=== PATIENT | female | born 1950 | race African-American/Black ===

== ENCOUNTER → 2016-09-22 | Outpatient (CLI) | payer OTHER ==
[2015-07-10 15:18] VITALS: BP 128/64
[~2016-09-22] MED LIST: ASPI-482 PO; CRESTOR10 MG PO; CRESTOR20 MG PO; LOSA1TAB16 PO; METO25TA4 PO; MULT-658 PO; Metoprolol Tartrate PO; NITR0.4T SL; PANT40TA3 PO; REGADENOSON 0.4 MG/5 ML DISP.SYRIN. IV ONE; TICA90TA PO; VIT1CAPS9 PO; vitamin d
--- NOTE | 2016-09-22 13:09 | RAD ---
APPROVED REPORT Test Type: Pharmacological Stress Nurse/Tech: Sofiya Sagastume RN Test Indications: CAD, Chest Pain Cardiac History: see ehr Medications: see ehr Medical History: see ehr Resting ECG: SR Resting Heart Rate: 63 bpm Resting Blood Pressure: 127/77mmHg Pretest Chest Pain: None Nurse/Tech Notes Lungs CTA, S1, S2 Consent: The procedure was explained to the patient in lay terms. Informed consent was witnessed. Albert eout was entered into [employer]. History and Stress Test performed by Javier AcostaNLay Pharm. Details Pharmacologic stress testing was performed using 0.4mg per 5ml of regadenoson given intravenously ove r 7-10 seconds. Stress Symptoms No chest pain or symptoms. POST EXERCISE Reason for Termination: Infusion complete Max HR: 102 bpm Max Blood Pressure: 140/69mmHg Blood Pressure response to exercise: Normal blood pressure response during stress. Chest Pain: No. Arrhythmia: No. ST Change: No. INTERPRETATION Stress EKG Conclusion: Baseline EKG showed sinus rhythm with inferolateral T-wave inversions. Nondiag nostic changes at peak stress. No arrhythmias. Imaging Protocol IMAGE PROTOCOL: Rest Tc-99m/stress Tc-99m 1 day Rest: Stress: Viability: Radiopharm.Tc99m DgpgotnuvLk17s Sestamibi Btin28bWd 31mCi Duration 15min. 10min. Img Date 09/22/2016 09/22/2016 Inj-Img [id number]. 60min. Rest Admin Site:IV - Left AntecubitalAdministrator:KENAN Romeo, ARRT (R)(N) Stress Admin Site: IV - Left AntecubitalAdministrator: Yesy Mariee, RT (R)(N) STRESS DATA End Diast. Vol.54.0mlAv. Heart Rate73.0bpm End Syst. Vol.6.0mlCO Index BSA0.0L/min Myocardial Mass94.0gEject. Prtnugoj65.0% Stress Rates Pk. Fill Rate3.51EDV/secLVtime Pk. Fill 72.39msec Pk. Empty Rate3.50ESV/secLVtime Pk. Vulyk597.93msec 1/3 Pk. Fill2.51EDV/sec Stress Scores Regional WT1.00Summed WT16.00 Regional WM0.00Summed WM0.00 Study quality was good. Left Ventricular size was Normal at Rest and Stress. Lung uptake was Normal. Left Ventricular ejection fraction is 89%. The rest and stress images show normal perfusion, normal contraction and thickening. LV Perf. Quant 17 Seg. SSS0.00 17 Seg. SRS3.00 17 Seg. SDS0.00 Stress Defect Extent (% LAD)0.00Rest Defect Extent (% LAD)13.80Rev. Defect Extent (% LAD)0.00 Stress Defect Extent (% LCX) 0.00Rest Defect Extent (% LCX)0.00Rev. Defect Extent (% LCX)0.00 Stress Defect Extent (% RCA)0.00Rest Defect Extent (% RCA)0.00Rev. Defect Extent (% RCA)0.00 Stress Defect Extent (% ELIOT)0.00Rest Defect Extent (% ELIOT)6.10Rev. Defect Extent (% ELIOT)0.00 Conclusion 1. Regadenoson cardioisotope stress test did not show any evidence of ischemia or infarct. 2. Normal left ventricular systolic function with ejection fraction calculated at 89%. 3. Low risk for cardiac events.
== END | disposition home or self-care (01) ==
LOC: NM 07:52
PROVIDERS: ATTEND Internal Medicine Cardiovascular Disease
DX: I21.3 ST elevation (STEMI) myocardial infarction of unspecified site (principal); I25.10 Atherosclerotic heart disease of native coronary artery without angina pectoris; I10 Essential (primary) hypertension; Z79.01 Long term (current) use of anticoagulants
CPT/HCPCS: 78452; 93017; 96374; 96375; 96376; A9500; J2785

== ENCOUNTER → 2017-11-14 | Outpatient (CLI) | payer OTHER | END | disposition home or self-care (01) | LOC: KCIC DEXA 10:51 | DX: Z12.31 Encounter for screening mammogram for malignant neoplasm of breast (principal); Z13.820 Encounter for screening for osteoporosis; Z78.0 Asymptomatic menopausal state | CPT/HCPCS: 77063; 77067; 77080 ==

== ENCOUNTER → 2018-06-22 | Outpatient (CLI) | payer OTHER ==
[2015-07-10 15:18] VITALS: BP 128/64
[~2018-06-22] MED LIST changes: -LOSA1TAB16 PO; +LOSA1TAB19 PO; -REGADENOSON 0.4 MG/5 ML DISP.SYRIN. IV ONE; +VIT1CAPS44 PO; -VIT1CAPS9 PO
--- NOTE | 2018-06-22 17:18 | CARD ---
MR#: [id number] Date of Study: 06/22/2018 Ordering Physician: EDWIN JOHN, Referring Physician: EDWIN JOHN, Tech: Pauly Carmona TIGRE APPROVED REPORT EXAM: Two-dimensional and M-mode echocardiogram with Doppler and color Doppler. Other Information Quality : Good INDICATION Myocardial Infarction 2D DIMENSIONS RVDd2.5 (2.9-3.5cm)Left Atrium(2D)3.4 (1.6-4.0cm) IVSd1.0 (0.7-1.1cm)Aortic Root(2D)2.6 (2.0-3.7cm) LVDd4.5 (3.9-5.9cm)LVOT Diameter1.9 (1.8-2.4cm) PWd0.9 (0.7-1.1cm)LVDs2.7 (2.5-4.0cm) FS (%) 30.0 %SV67.8 ml LVEF(%)60.0 (>50%) Aortic Valve AoV Peak Mathieu.135.7cm/sAoV VTI25.8cm AO Peak GR.7.4mmHgLVOT Peak Mathieu.103.4cm/s LVOT VTI 20.75cmAO Mean GR.4mmHg ABRIL (VMAX)2.09sj0JUC (VTI)2.19cm2 Mitral Valve MV E Zrjnvyee28.7cm/sMV DECEL IAQB480ek MV A Rmbuipgp29.3cm/sMV GMO30se E/A Ratio0.9MVA (PHT)3.54cm2 Tricuspid Valve TR P. Nnkdjezk705pw/sRAP FYWTOQOS9fzBi TR Peak Gr.37mwWhNHFR15maSv LEFT VENTRICLE The left ventricle is normal size. There is normal left ventricular wall thickness. The left ventricu lar systolic function is normal and the ejection fraction is within normal range. The Ejection Fracti on is 55-60%. Cannot rule out subtle inferolateral/posterior wall hypokinesis. Technically limited im ages. Transmitral Doppler flow pattern is Grade I-abnormal relaxation pattern. RIGHT VENTRICLE The right ventricle is normal size. The right ventricular systolic function is normal. ATRIA The left atrium size is normal. The right atrium size is normal. The interatrial septum is intact wit h no evidence for an atrial septal defect or patent foramen ovale as noted on 2-D or Doppler imaging. AORTIC VALVE The aortic valve is calcified but opens well. Doppler and Color Flow revealed no significant aortic r egurgitation. There is no significant aortic valvular stenosis. MITRAL VALVE The mitral valve is calcified but opens well. There is no evidence of mitral valve prolapse. There is no mitral valve stenosis. Doppler and Color-flow revealed trace to mild mitral regurgitation. TRICUSPID VALVE The tricuspid valve is normal in structure and function. Doppler and Color Flow revealed mild tricusp id regurgitation. The PA pressure was estimated at 33 mmHg. There is no tricuspid valve stenosis. PULMONIC VALVE The pulmonic valve is not well visualized. Doppler and Color Flow revealed trace pulmonic valvular re gurgitation. There is no pulmonic valvular stenosis. GREAT VESSELS The aortic root is normal in size. The ascending aorta is normal in size. The IVC is normal in size a nd collapses >50% with inspiration. PERICARDIAL EFFUSION There is no evidence of significant pericardial effusion. Critical Notification Critical Value: No <Conclusion> Cannot rule out subtle inferolateral/posterior wall hypokinesis. Technically limited images. Doppler and Color Flow revealed mild tricuspid regurgitation. The PA pressure was estimated at 33 mmH g. Signed by : Norris Mccall, Electronically Approved : 06/22/2018 17:16:26
== END | disposition home or self-care (01) ==
LOC: ECHO 13:47
PROVIDERS: ATTEND Internal Medicine Cardiovascular Disease
DX: I07.1 Rheumatic tricuspid insufficiency (principal); I21.3 ST elevation (STEMI) myocardial infarction of unspecified site
CPT/HCPCS: 93306

== ENCOUNTER → 2019-01-18 | Outpatient (CLI) | payer OTHER ==
[2015-07-10 15:18] VITALS: BP 128/64
[~2019-01-18] MED LIST changes: -PANT40TA3 PO; +PANT40TA77 PO
--- NOTE | 2019-01-18 08:57 | KCIC ---
EXAM: Bilateral digital screening mammogram with tomosynthesis. HISTORY: 68-year-old female presents for screening mammography. TECHNIQUE: Full-field digital craniocaudal and mediolateral oblique 2D and 3D tomosynthesis images of both breasts are obtained for evaluation. Computer aided detection with Secret[employer] software version 9.3 was applied. COMPARISON: 11/14/2017 BREAST PARENCHYMAL DENSITY: Level B - Scattered fibroglandular densities. FINDINGS: There is no new suspicious mass, microcalcification or region of architectural distortion. IMPRESSION: BI-RADS Category 2: Benign finding(s). RECOMMENDATION: Annual mammography is recommended. If your mammogram demonstrates that you have dense breast tissue, which could hide abnormalities, and if you have other risk factors for breast cancer that have been identified, you might benefit from supplemental screening tests that may be suggested by your ordering physician. Dense breast tissue, in and of itself, is a relatively common condition. This information is not provided to cause undue concern, but rather to raise your awareness and to promote discussion with your physician regarding the presence of other risk factors, in addition to dense breast tissue. A report of your mammography results will be sent to you and your physician. You should contact your physician if you have any questions or concerns regarding this report. Mammography is a sensitive method for finding small breast cancers, but it does not detect them all and is not a substitute for careful clinical examination. A negative mammogram does not negate a clinically suspicious finding and should not result in delay in biopsying a clinically suspicious abnormality. PQRS compliance statement - Patient information was entered into a reminder system with a target due date for the next mammogram. "Our facility is accredited by the [employer] Mammography [employer]." Electronically signed by: Yesy Meza MD (01/18/2019 8:54 AM) [facility]
== END | disposition home or self-care (01) ==
LOC: KCIC MAMMO 08:01
PROVIDERS: ATTEND Family Medicine
DX: Z12.31 Encounter for screening mammogram for malignant neoplasm of breast (principal); N64.89 Other specified disorders of breast
CPT/HCPCS: 77063; 77067

== ENCOUNTER → 2019-07-26 | Outpatient (CLI) | payer MEDICARE ==
[2015-07-10 15:18] VITALS: BP 128/64
[~2019-07-26] MED LIST changes: -NITR0.4T SL; +NITR0.4T24 SL
--- NOTE | 2019-07-26 14:15 | KCIC ---
3 views of left shoulder without comparison for left shoulder pain, decreased range of motion. FINDINGS: There is no fracture, dislocation, or acute osseous abnormality identified. Minimal degenerative changes are seen. No significant soft tissue or osseous abnormalities are evident. IMPRESSION: 1. No acute osseous abnormality of the left shoulder. Electronically signed by: Newton Marroquin MD (07/26/2019 2:12 PM) [id number]
== END | disposition home or self-care (01) ==
LOC: KCIC 09:47
PROVIDERS: ATTEND Family Medicine
DX: M25.512 Pain in left shoulder (principal); W19.XXXA Unspecified fall, initial encounter; M25.612 Stiffness of left shoulder, not elsewhere classified
CPT/HCPCS: 73030

== ENCOUNTER → 2020-02-26 | Outpatient (CLI) | payer MEDICARE ==
[2015-07-10 15:18] VITALS: BP 128/64
--- NOTE | 2020-02-26 14:53 | KCIC ---
Bilateral digital screening mammograms with 3-D tomosynthesis: Reason for examination: Routine screening. Comparison is made to previous studies dated back to 01/14/2016. Bilateral mammograms in CC and oblique projections were obtained with 2-D imaging and 3-D tomosynthesis imaging on a Siemens Inspiration unit and reviewed on the workstation. Interpretation was made with the benefit of CAD. The skin and nipples show no abnormalities. No abnormal axillary lymph nodes are seen. The breast parenchyma shows scattered fatty and fibroglandular density. (Breast density: Category B.) There are no dominant masses, suspicious calcifications or architectural distortion. Impression: No evidence of malignancy. Recommend routine screening. BI-RAD Category 1: Negative. "Our facility is accredited by the [employer] Mammography Program." This patient's information has been entered into a reminder system for the patient to be notified with the results of her examination and a target date for the next mammogram. Electronically signed by: Johnna Rondon MD (02/26/2020 2:50 PM) [email or web address]
== END ==
LOC: KCIC MAMMO 08:47
PROVIDERS: ATTEND Internal Medicine
DX: Z12.31 Encounter for screening mammogram for malignant neoplasm of breast (principal)
CPT/HCPCS: 77063; 77067

== ENCOUNTER → 2021-04-08 | Outpatient (CLI) | payer MEDICARE ==
[2015-07-10 15:18] VITALS: BP 128/64
--- NOTE | 2021-04-08 11:27 | KCIC ---
Bilateral digital screening mammograms with 3-D tomosynthesis: Reason for examination: Routine screening. Comparison is made to previous studies dated back to 01/14/2016. Bilateral mammograms in CC and oblique projections were obtained with 2-D imaging and 3-D tomosynthes is imaging on a Siemens Inspiration unit and reviewed on the workstation. Interpretation was made wit h the benefit of CAD. The skin and nipples show no abnormalities. No abnormal axillary lymph nodes are seen. The breast par enchyma shows scattered fatty and fibroglandular density. (Breast density: Category B.) There are no dominant masses, suspicious calcifications or architectural distortion. Impression: No evidence of malignancy. Recommend routine screening. BI-RAD Category 1: Negative. "Our facility is accredited by the [employer] Mammography Program." This patient's information has been entered into a reminder system for the patient to be notified wit h the results of her examination and a target date for the next mammogram. Electronically signed by: Johnna Rondon MD (04/08/2021 11:25 AM) [email or web address]
== END ==
LOC: KCIC MAMMO 10:32
PROVIDERS: ATTEND Internal Medicine
DX: Z12.31 Encounter for screening mammogram for malignant neoplasm of breast (principal)
CPT/HCPCS: 77063; 77067